=== PATIENT | female | born 1980 | race Caucasian/White ===

== ENCOUNTER 2024-12-27 15:28 | Emergency (ER) | payer BC, OTHER ==
[~2024-12-27] VITALS: Ht 160 cm; Wt 64.0 kg
[2024-12-27 15:30] VITALS: PULSE 96; RESP 14; TEMP 98.6
[2024-12-27 16:08] LABS: BASOPHILS % 0.1 % (0.0-1.0); EOSINOPHILS # (AUTO) 0.2 (0.0-0.4); EOSINOPHILS % 1.1 % (0.0-6.0); HEMOGLOBIN 11.9 g/dL (12.0-16.0); MEAN CORPUSCULAR HEMOGLOBIN 33.8 pg (28-32); MEAN CORPUSCULAR HGB CONC 33.1 g/dL (31-35); MEAN CORPUSCULAR VOLUME 102.3 fL (81-99); MONOCYTES # (AUTO) 0.8 (0.2-0.8); MONOCYTES % 5.7 % (4.4-11.3); NEUTROPHILS # (AUTO) 10.3 (2.1-6.9); NEUTROPHILS % 76.5 % (38.7-80.0); PLATELET COUNT 231 x10e3/uL (140-360); RED BLOOD COUNT 3.52 x10e6/uL (3.6-5.1); RED CELL DISTRIBUTION WIDTH 11.9 % (11.7-14.4); WHITE BLOOD COUNT 13.41 x10e3/uL (4.8-10.8)
[2024-12-27] MEDS: SODIUM CHLORIDE 0.9% 1000ML 1,000 ML IV ONE (16:14)
[2024-12-27] MEDS: ONDANSETRON HCL INJ 2MG/ML 2ML 2 MG/ML VIAL IV STA (16:14)
[2024-12-27 16:20] LABS: ALBUMIN 3.1 g/dL (3.5-5.0); ALBUMIN/GLOBULIN RATIO 0.9 (0.8-2.0); ANION GAP 18.9 mmol/L (8-16); BILIRUBIN,TOTAL 0.4 mg/dL (0.2-1.2); CALCIUM 9.4 mg/dL (8.4-10.2); CREATININE, SERUM 1.51 mg/dL (0.57-1.11); POTASSIUM 3.9 mmol/L (3.5-5.1); TOTAL PROTEIN 6.6 g/dL (6.5-8.1)
[2024-12-27 17:12] LABS: BILIRUBIN,URINE NEGATIVE (NEGATIVE); CLARITY,URINE CLOUDY (CLEAR); COLOR,URINE YELLOW (YELLOW); GLUCOSE, URINE 500 (NEGATIVE); KETONES,URINE NEGATIVE (NEGATIVE); LEUKOCYTE ESTERASE ,URINE NEGATIVE (NEGATIVE); NITRITE,URINE NEGATIVE (NEGATIVE); PH,URINE 5.5 (5 - 7); PROTEIN,URINE DIPSTICK 1+ (NEGATIVE); URINE UROBILINOGEN 0.2 mg/dL (0.2 - 1)
[2024-12-27 17:31] LABS: BACTERIA,URINE FEW /HPF; EPITHELIAL CELLS,URINE MANY /LPF; RBC,URINE 0-5 /HPF (0-5)
[2024-12-27 17:32] LABS: YEAST,URINE FEW
[2024-12-27] MEDS ORDERED: FLUCONAZOLE200 MG PO (18:10)
[2024-12-27] MEDS ORDERED: ONDANSETRON ODT4 MG PO (18:10)
[2024-12-27] MEDS ORDERED: FLUCONAZOLE 100 MG TAB PO ONE (18:15)
[2024-12-27] MEDS: FLUCONAZOLE 100 MG TAB PO ONE (18:38)
[2024-12-27] MEDS ORDERED: AMOX TR-K CLV1 EAC2 PO (19:27)
[2024-12-27] MEDS ORDERED: PREDNISONE20 MG PO (19:27)
[2024-12-27] MEDS ORDERED: HYDROCODON-ACE1 EA11 PO (19:27)
[2024-12-27] MEDS ORDERED: PROMETHAZINE HC25 M1 PO (19:27)
[2024-12-27] MEDS ORDERED: DIFLUCAN100 MG PO (19:28)
[2024-12-27] MEDS ORDERED: PANTOPRAZOLE SO40 MG PO (19:29)
[2024-12-27 23:59] VITALS: BP 129/62; PULSE 84; RESP 16; TEMP 98.3; O2SAT 99
== END 2024-12-27 19:30 | disposition home or self-care (01) ==
LOC: ER 15:40
DX: R11.2 Nausea with vomiting, unspecified (principal); R10.30 Lower abdominal pain, unspecified; N18.9 Chronic kidney disease, unspecified; Z98.890 Other specified postprocedural states; Z94.81 Bone marrow transplant status; K29.80 Duodenitis without bleeding
CPT/HCPCS: 36415; 74176; 80053; 81001; 83690; 84702; 85025; 99284; J2405; J7030

== ENCOUNTER 2025-01-04 09:17 | Inpatient (IN) | payer OTHER ==
[~2025-01-04] VITALS: Ht 160 cm; Wt 64.0 kg
[2025-01-04] VITALS (10 sets, daily range): BP systolic 94–111; BP diastolic 49–74; PULSE 111–144; RESP 16–36; TEMP 98.8–102; O2SAT 95–99
[~2025-01-04 09:17] MED LIST: AMOX TR-K CLV1 EAC2 PO; DIFLUCAN100 MG PO; FLUCONAZOLE200 MG PO; HYDROCODON-ACE1 EA11 PO; ONDANSETRON ODT4 MG PO; PANTOPRAZOLE SO40 MG PO; PREDNISONE20 MG PO; PROMETHAZINE HC25 M1 PO
[2025-01-04] MEDS ORDERED: HYDROCODONE-AC473 M1 PO (09:41)
[2025-01-04] MEDS ORDERED: NEURONTIN300 MG PO (09:41)
[2025-01-04] MEDS ORDERED: FARXIGA10 MG PO (09:41)
[2025-01-04] MEDS ORDERED: HYDROCHLOROTHIA25 MG PO (09:41)
[2025-01-04] MEDS ORDERED: SODIUM BICARBO650 MG PO (09:41)
[2025-01-04] MEDS ORDERED: ONDANSETRON ODT4 MG PO (09:41)
[2025-01-04] MEDS ORDERED: CLONAZEPAM0.5 MG PO (09:41)
[2025-01-04] MEDS ORDERED: DOCUSATE SODIU100 MG PO (09:41)
[2025-01-04] MEDS ORDERED: PERCOCET 5-3251 EACH PO (09:41)
[2025-01-04] MEDS ORDERED: ZESTRIL10 MG PO (09:41)
[2025-01-04] MEDS ORDERED: HYDROXYZINE HCL25 MG PO (09:41)
[2025-01-04] MEDS ORDERED: ASPIRIN325 MG PO (09:41)
[2025-01-04] MEDS: SODIUM CHLORIDE 0.9% 1000ML 1,000 ML IV STA ×2 (10:07)
[2025-01-04] MEDS: ACETAMINOPHEN 1000 MG/100 ML IV STA ×2 (10:07→23:46)
[2025-01-04] MEDS: ONDANSETRON HCL INJ 2MG/ML 2ML 2 MG/ML VIAL IV STA ×2 (10:07→11:36)
[2025-01-04 10:08] LABS: BASOPHILS % 0.3 % (0.0-1.0); EOSINOPHILS # (AUTO) 0.2 (0.0-0.4); EOSINOPHILS % 1.5 % (0.0-6.0); HEMATOCRIT 34.2 % (34.2-44.1); HEMOGLOBIN 11.5 g/dL (12.0-16.0); LYMPHOCYTES # (AUTO) 4.2 (1.0-3.2); LYMPHOCYTES % 29.7 % (18.0-39.1); MEAN CORPUSCULAR HEMOGLOBIN 35.1 pg (28-32); MEAN CORPUSCULAR HGB CONC 33.6 g/dL (31-35); MEAN CORPUSCULAR VOLUME 104.3 fL (81-99); MONOCYTES # (AUTO) 0.7 (0.2-0.8); MONOCYTES % 4.8 % (4.4-11.3); NEUTROPHILS # (AUTO) 7.4 (2.1-6.9); NEUTROPHILS % 52.6 % (38.7-80.0); PLATELET COUNT 288 x10e3/uL (140-360); RED BLOOD COUNT 3.28 x10e6/uL (3.6-5.1); RED CELL DISTRIBUTION WIDTH 14.4 % (11.7-14.4); WHITE BLOOD COUNT 14.13 x10e3/uL (4.8-10.8)
[2025-01-04 10:34] LABS: ALANINE AMINOTRANSFERASE 315 IU/L (0-55); ALBUMIN 3.2 g/dL (3.5-5.0); ALKALINE PHOSPHATASE 147 IU/L (40-150); ANION GAP 18.1 mmol/L (8-16); BILIRUBIN,TOTAL 0.5 mg/dL (0.2-1.2); BLOOD UREA NITROGEN 48 mg/dL (7-26); BUN/CREATININE RATIO 24 (6-25); CALCIUM 8.6 mg/dL (8.4-10.2); CARBON DIOXIDE 23 mmol/L (22-29); CHLORIDE 104 mmol/L (98-107); CREATININE, SERUM 1.96 mg/dL (0.57-1.11); EST GLOMERULAR FILTRATION RATE 32 ML/MIN (>=60); GLUCOSE 130 mg/dL (74-118); LIPASE 86 U/L (8-78); MAGNESIUM 1.8 MG/DL (1.3-2.1); POTASSIUM 4.1 mmol/L (3.5-5.1); SODIUM 141 mmol/L (136-145); TOTAL PROTEIN 6.5 g/dL (6.5-8.1)
[2025-01-04 10:39] LABS: INR 0.91; PROTHROMBIN TIME 12.8 seconds (11.9-14.5)
[2025-01-04 10:40] LABS: PARTIAL THROMBOPLASTIN TIME 23.3 seconds (23.8-35.5)
[2025-01-04 10:42] LABS: CORONAVIRUS COVID-19 AG NEGATIVE (NEGATIVE); INFLUENZA A AG NEGATIVE (NEGATIVE); INFLUENZA B AG NEGATIVE (NEGATIVE)
[2025-01-04 10:44] LABS: TROPONIN I < 0.001 ng/mL (0-0.300)
[2025-01-04 10:57] LABS: CLARITY,URINE CLEAR (CLEAR); COLOR,URINE YELLOW (YELLOW); LEUKOCYTE ESTERASE ,URINE NEGATIVE (NEGATIVE); NITRITE,URINE NEGATIVE (NEGATIVE); PH,URINE 6 (5 - 7); PROTEIN,URINE DIPSTICK NEGATIVE (NEGATIVE)
[2025-01-04 10:58] LABS: BACTERIA,URINE FEW /HPF; BILIRUBIN,URINE NEGATIVE (NEGATIVE); EPITHELIAL CELLS,URINE MODERATE /LPF; GLUCOSE, URINE 2+ (NEGATIVE); KETONES,URINE NEGATIVE (NEGATIVE); RBC,URINE 0-5 /HPF (0-5); URINE UROBILINOGEN 0.2 mg/dL (0.2 - 1); WBC,URINE (MAN) 0-5 /HPF (0-5)
[2025-01-04] MEDS ORDERED: IOPAMIDOL 370 MG/ML 100 ML INFUS..BTL INJ ONE (11:16)
[2025-01-04] MEDS: Morphine 4mg INJECTION 4 MG/ML INJ IV STA (11:36)
[2025-01-04 11:52] LABS: BASOPHILS % (MANUAL) 1 % (0-1.5); EOSINOPHILS % (MANUAL) 1 % (0-7); LYMPHOCYTES % (MANUAL) 34 % (19-48); MONOCYTES % (MANUAL) 7 % (3.4-9.0); MYELOCYTES % (MANUAL) 5 % (0-0); NEUTROPHILS % (MANUAL) 52 % (40-74); PLATELET ESTIMATE ADEQUATE; PLATELET MORPHOLOGY COMMENT NORMAL; RBC MORPHOLOGY COMMENT NORMAL
[2025-01-04] MEDS: SODIUM CHLORIDE 0.9% 1000ML 1,000 ML IV SCH ×2 (13:41→15:45)
[2025-01-04] MEDS: ENOXAPARIN SOD INJ 60 MG/0.6 ML SYR SC ONE (13:41)
[2025-01-04] MEDS: Vancomycin IV 1 GM in SODIUM CHLORIDE 0.9% 250ML 250 ML IV ONE (15:16)
[2025-01-04] MEDS: DIPHENHYDRAMINE HCL INJ 50 MG/ML VIAL IV ONE ×2 (15:16→20:46)
[2025-01-04] MEDS: Morphine 2mg Syringe 2 MG/ML SYR IV PRN (16:50)
[2025-01-04] MEDS: ACETAMINOPHEN 325 MG TAB PO PRN (19:09)
[2025-01-04] MEDS ORDERED: HYDROCODONE PO PRN (23:15)
[2025-01-04] MEDS ORDERED: ACETAMINOPHEN PO PRN (23:15)
[2025-01-04] MEDS ORDERED: [UNRECOGNIZED DRUG - OTHER] PO PRN (23:15)
[2025-01-04] MEDS ORDERED: DEXTROSE 50% SYRINGE 50 ML IV PRN (23:30)
[2025-01-04] MEDS ORDERED: PROMETHAZINE HCL 25 MG TAB PO PRN (23:30)
[2025-01-05] VITALS (41 sets, daily range): BP systolic 75–131; BP diastolic 43–80; PULSE 96–126; RESP 12–33; TEMP 98.4–100.8; O2SAT 91–100
[2025-01-05] MEDS: ALBUMIN 5% 0.05 GM/ML BTL IV ONE ×2 (00:04→02:40)
[2025-01-05] MEDS: ONDANSETRON HCL INJ 2MG/ML 2ML 2 MG/ML VIAL IV PRN (00:35)
[2025-01-05] MEDS: ENOXAPARIN SOD INJ 60 MG/0.6 ML SYR SC SCH (01:04)
[2025-01-05] MEDS: VASOPRESSIN 60 UNIT in DEXTROSE 5% 50ML 57 ML IV SCH (04:11)
[2025-01-05] MEDS ORDERED: PANTOPRAZOLE SOD 40 MG TABEC PO SCH (07:30)
[2025-01-05] MEDS: INSULIN REGULAR, HUMAN 100 UNIT/1 ML SQ SCH (07:30)
[2025-01-05 08:47] LABS: BASOPHILS % 0.1 % (0.0-1.0); EOSINOPHILS # (AUTO) 0.3 (0.0-0.4); EOSINOPHILS % 1.9 % (0.0-6.0); HEMATOCRIT 28.6 % (34.2-44.1); HEMOGLOBIN 9.6 g/dL (12.0-16.0); LYMPHOCYTES # (AUTO) 1.6 (1.0-3.2); MEAN CORPUSCULAR HGB CONC 33.6 g/dL (31-35); MEAN CORPUSCULAR VOLUME 104.4 fL (81-99); MONOCYTES # (AUTO) 0.4 (0.2-0.8); MONOCYTES % 2.5 % (4.4-11.3); NEUTROPHILS # (AUTO) 11.6 (2.1-6.9); NEUTROPHILS % 81.5 % (38.7-80.0); PLATELET COUNT 226 x10e3/uL (140-360); RED BLOOD COUNT 2.74 x10e6/uL (3.6-5.1); WHITE BLOOD COUNT 14.16 x10e3/uL (4.8-10.8)
[2025-01-05] MEDS: DOCUSATE SODIUM 100 MG CAP PO SCH (09:00)
[2025-01-05] MEDS: HYDROCODONE/APAP 10MG-325MG TAB PO PRN (09:03)
[2025-01-05 09:12] LABS: ALBUMIN 2.7 g/dL (3.5-5.0); ANION GAP 14.9 mmol/L (8-16); BILIRUBIN,TOTAL 0.5 mg/dL (0.2-1.2); CALCIUM 7.9 mg/dL (8.4-10.2); CREATININE, SERUM 2.29 mg/dL (0.57-1.11); POTASSIUM 4.9 mmol/L (3.5-5.1); TOTAL PROTEIN 5.3 g/dL (6.5-8.1)
[2025-01-05] MEDS: LINEZOLID 600 MG/D5W 300ML 300 ML IV SCH (12:31)
[2025-01-05] MEDS: DIPHENHYDRAMINE HCL 25 MG CAP PO PRN (13:21)
[2025-01-05] MEDS: GABAPENTIN 300 MG CAP PO SCH (20:11)
[2025-01-05] MEDS: CLONAZEPAM 0.5 MG TAB PO SCH (20:11)
[2025-01-05] MEDS: ONDANSETRON HCL 4 MG ORAL DISINTEGRATING TAB PO SCH (23:38)
[2025-01-06] VITALS (40 sets, daily range): BP systolic 85–119; BP diastolic 50–81; PULSE 97–159; RESP 14–28; TEMP 98.7–102.8; O2SAT 70–100
[2025-01-06] MEDS: DIPHENHYDRAMINE HCL INJ 50 MG/ML VIAL IV PRN (01:33)
[2025-01-06 07:05] LABS: BASOPHILS % 0.1 % (0.0-1.0); EOSINOPHILS # (AUTO) 0.4 (0.0-0.4); EOSINOPHILS % 2.6 % (0.0-6.0); HEMATOCRIT 28.8 % (34.2-44.1); HEMOGLOBIN 9.5 g/dL (12.0-16.0); LYMPHOCYTES # (AUTO) 1.7 (1.0-3.2); LYMPHOCYTES % 12.5 % (18.0-39.1); MEAN CORPUSCULAR HEMOGLOBIN 35.6 pg (28-32); MEAN CORPUSCULAR VOLUME 107.9 fL (81-99); MONOCYTES # (AUTO) 0.6 (0.2-0.8); MONOCYTES % 4.1 % (4.4-11.3); NEUTROPHILS # (AUTO) 10.9 (2.1-6.9); NEUTROPHILS % 78.8 % (38.7-80.0); PLATELET COUNT 214 x10e3/uL (140-360); RED BLOOD COUNT 2.67 x10e6/uL (3.6-5.1); RED CELL DISTRIBUTION WIDTH 15.7 % (11.7-14.4); WHITE BLOOD COUNT 13.87 x10e3/uL (4.8-10.8)
[2025-01-06 07:33] LABS: ALBUMIN 2.9 g/dL (3.5-5.0); ALBUMIN/GLOBULIN RATIO 0.9 (0.8-2.0); ANION GAP 15.7 mmol/L (8-16); BILIRUBIN,TOTAL 0.7 mg/dL (0.2-1.2); CALCIUM 8.4 mg/dL (8.4-10.2); CREATININE, SERUM 2.37 mg/dL (0.57-1.11); POTASSIUM 4.7 mmol/L (3.5-5.1)
[2025-01-06] MEDS: SODIUM BICARBONATE 650 MG TAB PO SCH (08:22)
[2025-01-06] MEDS: HYDROXYZINE HCL 25 MG TAB PO SCH (08:22)
[2025-01-06] MEDS: HYDROCHLOROTHIAZIDE 25 MG TAB PO SCH (08:23)
[2025-01-06] MEDS: LISINOPRIL 10 MG TAB PO SCH (08:24)
[2025-01-06] MEDS: METHYLPREDNISOLONE SOD SUCC 40 MG/ML VIAL 1ML IV SCH (13:32)
[2025-01-06] MEDS: SODIUM CHLORIDE 0.9% 1000ML 1,000 ML IV SCH ×2 (13:32)
[2025-01-07] VITALS (10 sets, daily range): BP systolic 104–134; BP diastolic 71–87; PULSE 92–118; RESP 18–25; TEMP 97.3–99.1; O2SAT 92–98
[2025-01-07 06:53] LABS: BASOPHILS % 0.1 % (0.0-1.0); HEMATOCRIT 27.8 % (34.2-44.1); HEMOGLOBIN 9.2 g/dL (12.0-16.0); LYMPHOCYTES # (AUTO) 1.1 (1.0-3.2); LYMPHOCYTES % 11.7 % (18.0-39.1); MEAN CORPUSCULAR HEMOGLOBIN 35.8 pg (28-32); MEAN CORPUSCULAR HGB CONC 33.1 g/dL (31-35); MEAN CORPUSCULAR VOLUME 108.2 fL (81-99); MONOCYTES # (AUTO) 0.2 (0.2-0.8); MONOCYTES % 1.9 % (4.4-11.3); NEUTROPHILS # (AUTO) 7.9 (2.1-6.9); NEUTROPHILS % 85.2 % (38.7-80.0); PLATELET COUNT 237 x10e3/uL (140-360); RED BLOOD COUNT 2.57 x10e6/uL (3.6-5.1); RED CELL DISTRIBUTION WIDTH 15.7 % (11.7-14.4); WHITE BLOOD COUNT 9.32 x10e3/uL (4.8-10.8)
[2025-01-07 07:18] LABS: ALBUMIN 2.7 g/dL (3.5-5.0); ALBUMIN/GLOBULIN RATIO 0.7 (0.8-2.0); ANION GAP 17.7 mmol/L (8-16); BILIRUBIN,TOTAL 0.4 mg/dL (0.2-1.2); CALCIUM 8.6 mg/dL (8.4-10.2); CREATININE, SERUM 2.21 mg/dL (0.57-1.11); POTASSIUM 4.7 mmol/L (3.5-5.1); TOTAL PROTEIN 6.4 g/dL (6.5-8.1)
[2025-01-07] MEDS: MUPIROCIN 2% OINT 22 GM TUBE TOP SCH (17:42)
== END 2025-01-07 18:00 | disposition short-term general hospital (02) | DRG 862 ==
LOC: ER 09:24 → ERHOLD 15:42 → MED/SURG 17:30 → ICU 20:30
PROVIDERS: ADMIT Internal Medicine; ATTEND Internal Medicine
PROC: 3E0333Z Introduction of Anti-inflammatory into Peripheral Vein, Percutaneous Approach (ICD-10-PCS; principal; 2025-01-04)
PROC: 3E033XZ Introduction of Vasopressor into Peripheral Vein, Percutaneous Approach (ICD-10-PCS; 2025-01-05)
DX: T81.41XA Infection following a procedure, superficial incisional surgical site, initial encounter (principal); A41.9 Sepsis, unspecified organism; R65.21 Severe sepsis with septic shock; I82.412 Acute embolism and thrombosis of left femoral vein; N17.9 Acute kidney failure, unspecified; Z94.81 Bone marrow transplant status; L03.116 Cellulitis of left lower limb; E87.20 Acidosis, unspecified; L02.416 Cutaneous abscess of left lower limb; T81.44XA Sepsis following a procedure, initial encounter; E11.22 Type 2 diabetes mellitus with diabetic chronic kidney disease; N18.30 Chronic kidney disease, stage 3 unspecified; D63.1 Anemia in chronic kidney disease; R00.0 Tachycardia, unspecified; R53.81 Other malaise; L53.9 Erythematous condition, unspecified; T36.8X5A Adverse effect of other systemic antibiotics, initial encounter; Z11.52 Encounter for screening for COVID-19; Z79.82 Long term (current) use of aspirin; Z79.84 Long term (current) use of oral hypoglycemic drugs; Z96.643 Presence of artificial hip joint, bilateral
CPT/HCPCS: 36415; 71045; 74177; 74470; 76770; 76882; 80053; 81001; 81025; 83605; 83690; 83735; 84484; 84702; 85025; 85610; 85730; 87040; 87086; 93005; 93971; 99284; J1200; J1650; J2020; J2270; J2405; J2470; J2543; J2919; J3410; J7030; J7050; Q0162; Q9967